=== PATIENT | female | born 1965 | race Asian ===

== ENCOUNTER 2019-06-17 08:42 | Emergency (ER) | payer OTHER ==
[~2019-06-17] VITALS: Ht 157.5 cm; Wt 58.1 kg
[2019-06-17] MEDS ORDERED: ATORVASTATIN CA20 MG ORAL (08:48)
[2019-06-17 08:50] VITALS: BP 140/71
--- NOTE | 2019-06-17 08:50 | NUR ---
ED Nurse Note: came to ED due to right arm swelling and pain. 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 CMS intact. NAD noted. No trauma noted.
--- NOTE | 2019-06-17 08:57 | Emergency Room Report ---
History of Present Illness General Chief Complaint: Upper Extremity Injury Source: Patient Present Illness HPI Patient is a 54-year-old female presents after increased discomfort to the right wrist area. Patient reports having increased pain after right upper extremity was caught in a door at the facility she works. She denies any other locations of pain. 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 She is right- hand dominant. She reports having some prior history of arthritis to her hand. Denies any other locations of pain or injury at this time. She denies any prior past medical history. Allergies: Coded Allergies: No Known Allergies (Unverified , 06/17/19) Patient History Last Menstrual Period: menopause Reviewed Nursing Documentation: PMH: Agreed; PSxH: Agreed Nursing Documentation-PMH Past Medical History: No Stated History Review of Systems Gastrointestinal: Reports: see HPI All Other Systems: negative except mentioned in HPI Physical Exam Vital Signs Date Time Temp Pulse Resp B/P (MAP) Pulse Ox O2 Delivery O2 Flow Rate FiO2 06/17/19 08:44 97.9 58 18 140/71 (94) 96 Room Air Sp02 EP Interpretation: reviewed, normal General Appearance: normal inspection, well appearing, no apparent distress, alert, GCS 15 Head: atraumatic ENT: normal ENT inspection, hearing grossly normal, normal voice Neck: normal inspection, full range of motion, supple, no bony tend Respiratory: normal inspection, lungs clear, normal breath sounds, no respiratory distress, no retraction, no wheezing Cardiovascular #1: regular rate, rhythm, no edema Gastrointestinal: normal inspection, normal bowel sounds, non tender, soft, no guarding, no hernia Genitourinary: no CVA tenderness Musculoskeletal: normal inspection, back normal, normal range of motion Neurologic: normal inspection, alert, oriented x3, responsive, tank builder III-XII nml as tested, speech normal Psychiatric: normal inspection, judgement/insight normal, mood/affect normal Medical Decision Making Diagnostic Impression: Primary Impression: Wrist contusion ER Course Patient presented for wrist pain. Differential diagnosis include is not limited to fracture, contusion, sprain, radial ulnar joint injury, among others. X-ray imaging of the right forearm 3 views interpreted by me showed normal bony alignment without evident fracture. Degenerative changes are noted. Patient is given ibuprofen. She is placed in an Alex wrap. She is advised to follow-up [facility] for recheck in the next 3 to 4 days. She is to return if worse. Last Vital Signs Date Time Temp Pulse Resp B/P (MAP) Pulse Ox O2 Delivery O2 Flow Rate FiO2 06/17/19 08:44 97.9 58 18 140/71 (94) 96 Room Air Status: improved Disposition: HOME, SELF-CARE Condition: Stable Scripts Ibuprofen (Ibuprofen) 400 Mg Tablet 400 MG PO EVERY 8 HOURS, #30 TAB Prov: Xu Reed MD 06/17/19 Xu Reed MD Jun 17, 2019 08:57
[2019-06-17] MEDS ORDERED: IBUPROFEN400 M1 PO (09:19)
--- NOTE | 2019-06-17 09:54 | NUR ---
ED Nurse Note: Pt cleared by health care Provider for discharge. DC instructions/prescription was given and explained to pt and verbalized understanding of teachings. All medical deviecs such as ID band removed. Pt is AAO x4, ambulatory and left with all personal belongings.
[2019-06-17 09:56] VITALS: BP 140/71
--- NOTE | 2019-06-17 10:23 | Diagnostic Imaging Report ---
Indication: Right wrist pain COMPARISON: None Findings: 3 views of the right wrist were obtained. No acute fracture or malalignment identified. Bone mineralization is within normal limits. Soft tissue swelling is noted especially on the dorsal part of the wrist. IMPRESSION: Soft tissue swelling
== END 2019-06-17 09:58 | disposition home or self-care (01) ==
LOC: EMR 09:00
DX: S60.211A Contusion of right wrist, initial encounter (principal); M19.90 Unspecified osteoarthritis, unspecified site; W23.0XXA Caught, crushed, jammed, or pinched between moving objects, initial encounter; Y92.199 Unspecified place in other specified residential institution as the place of occurrence of the external cause; Y99.0 Civilian activity done for income or pay
CPT/HCPCS: 99283